=== PATIENT | female | born 1985 | race Hispanic/Latino ===

== ENCOUNTER 2018-10-19 15:30 | Inpatient (IN) | payer MEDICAID, OTHER ==
[2018-10-19 15:30] VITALS: BMI 18.4
--- NOTE | 2018-10-19 16:22 | ED PDOC ---
HPI: Psych/Substance Abuse Chief Complaint (Nursing): Psychiatric Evaluation Chief Complaint (Provider): Psychiatric Evaluation History Per: Patient History/Exam Limitations: no limitations Additional Complaint(s): July Amin is a 33 year old female with a past medical history of depression and hepatitis C, who presents to the emergency department complaining of suicidal ideation. Patient further states that she feels like jumping when she goes over a bridge and states that she does not want to exist anymore. Patient states she was diagnosed with hepatitis C x1.5 years ago. She admits to using heroine and states that she last used it at 5am today. Patient is also on klonopin that is prescribed to her by her doctor at [facility]. She was instructed to follow up with psychiatrist, but she denies ever doing it. PMD: [facility] Past Medical History Reviewed: Historical Data, Nursing Documentation, Vital Signs Vital Signs: Last Vital Signs Temp 98.3 F 10/19/18 15:46 Pulse 102 H 10/19/18 15:46 Resp 16 10/19/18 15:46 BP 125/77 10/19/18 15:46 Pulse Ox 96 10/19/18 15:46 - Medical History PMH: Anxiety, Depression, Seizures Denies: Alzheimer's Disease, Anemia, Arthritis, Asthma, Atrial Fibrillation, Bronchitis, Cardia Arrhythmia, CHF, COPD, Crohn's Disease, Dementia, Diabetes, Diverticulitis, Emphysema, Fractures, Gastritis, Gall Bladder Disease, Hepatitis, HIV, HTN, Hypercholesterolemia, Hyperthyroidism, Hypothyroidism, Kidney Stones, Migraine, Mitral Valve Prolapse, Multiple Sclerosis, Osteoporosis, Pancreatitis, Parkinson's Disease, Peripheral Edema, Pneumonia, Pulmonary Embolism, Chronic Kidney Disease, Rheumatoid Arthritis, Sickle Cell Disease, Sexually Transmitted Disease, Sleep Apnea, TIA - Surgical History Surgical History: Denies: Pacemaker - Family History Family History: States: Unknown Family Hx - Immunization History Hx Tetanus Toxoid Vaccination: No Hx Influenza Vaccination: No Hx Pneumococcal Vaccination: No - Home Medications Home Medications: Ambulatory Orders Medication Instructions Recorded Divalproex [Depakote ER] 500 mg PO Q12 10/19/18 Gabapentin [Neurontin] 800 mg PO Q8 10/19/18 Mirtazapine [Remeron] 30 mg PO HS 10/19/18 QUEtiapine [Seroquel] 100 mg PO Q12 10/19/18 Sertraline [Zoloft] 100 mg PO DAILY 10/19/18 clonazePAM [Klonopin] 0.5 mg PO DAILY PRN 10/19/18 - Allergies Allergies/Adverse Reactions: Allergies Allergy/AdvReac Type Severity Reaction Status Date / Time Sulfa (Sulfonamide Allergy SWELLING Verified 10/19/18 15:46 Antibiotics) Review of Systems ROS Statement: Except As Marked, All Systems Reviewed And Found Negative Psych: Positive for: Suicidal ideation Physical Exam - Reviewed Nursing Documentation Reviewed: Yes Vital Signs Reviewed: Yes - Physical Exam Appears: Positive for: Non-toxic, No Acute Distress Head Exam: Positive for: ATRAUMATIC Skin: Positive for: Normal Color (abrasions to the hands bilaterally and the left side of face ) Cardiovascular/Chest: Positive for: Regular Rate, Rhythm. Negative for: Murmur Respiratory: Positive for: Normal Breath Sounds. Negative for: Respiratory Distress - Laboratory Results Result Diagrams: 10/19/18 16:47 10/19/18 16:47 - ECG O2 Sat by Pulse Oximetry: 96 (RA) Pulse Ox Interpretation: Normal Medical Decision Making Medical Decision Making: Time: 1555 Plan: --1:1 observation After evaluation by crisis team, decision was made by Dr Reed to admit for Suicidal Ideation an dMajor Depression Bridge orders including wound culture on facial lesion were entered to facilitate smooth transfer of patient care. ---- Scribe Attestation: Documented by Kyle Garcia, acting as a scribe for Aryan Doss PA-C. Provider Scribe Attestation: All medical record entries made by the Scribe were at my direction and personally dictated by me. I have reviewed the chart and agree that the record accurately reflects my personal performance of the history, physical exam, medical decision making, and the department course for this patient. I have also personally directed, reviewed, and agree with the discharge instructions and di sposition. Disposition - Clinical Impression Clinical Impression: Depression, major, severe recurrence - Patient ED Disposition Is Patient to be Admitted: Yes Discussed With Dr.: Reji Solis Doctor Will See Patient In The: Hospital Counseled Patient/Family Regarding: Diagnosis - Disposition Disposition Time: 21:32 Condition: STABLE - Pt Status Changed To: Hospital Disposition Of: Inpatient - Admit Certification Admit to Inpatient:: After my assessment, the patient will require hospitalization for at least two midnights. This is because of the severity of symptoms shown, intensity of services needed, and/or the medical risk in this patient being treated as an outpatient.
[2018-10-19 17:05] LABS: BASO # 0.1 K/uL (0.0-0.2); BASO % 0.8 % (0.0-2.0); EOS # 0.4 K/uL (0.0-0.7); EOS % 5.9 % (0.0-4.0); HEMOGLOBIN 11.6 g/dL (12.0-16.0); LYMPH # 2.7 K/uL (1.0-4.3); LYMPH % 39.3 % (20.0-40.0); MEAN CELL VOLUME 88.9 fl (81.0-99.0); MEAN CORPUSCULAR HEMOGLOBIN 29.6 pg (27.0-31.0); MEAN CORPUSCULAR HGB CONC 33.3 g/dL (33.0-37.0); MEAN PLATELET VOLUME 7.8 fl (7.2-11.7); MONO # 0.7 K/uL (0.0-0.8); MONO % 10.7 % (0.0-10.0); NEUT # 2.9 K/uL (1.8-7.0); NEUT % 43.3 % (50.0-75.0); RBC 3.9 Mil/uL (3.80-5.20); RED CELL DISTRIBUTION WIDTH 14.8 % (11.5-14.5); WHITE BLOOD COUNT 6.8 K/uL (4.8-10.8)
[2018-10-19 17:10] LABS: SQUAMOUS EPITHIAL 12 /hpf (0-5); URINE BACTERIA FEW (<OCC); URINE BILIRUBIN NEGATIVE (NEGATIVE); URINE BLOOD NEGATIVE (NEGATIVE); URINE CLARITY SLIGHTY-CLOUDY (Clear); URINE COLOR YELLOW (YELLOW); URINE GLUCOSE (UA) NEG (NEGATIVE); URINE LEUKOCYTE ESTERASE SMALL Leu/uL (Negative); URINE PROTEIN NEGATIVE (NEGATIVE)
[2018-10-19 17:20] LABS: ALB/GLOB RATIO 1.1 (1.0-2.1); ALBUMIN 3.7 g/dL (3.5-5.0); ALT/SGPT 46 U/L (9-52); AST/SGOT 54 U/L (14-36); BLOOD UREA NITROGEN 17 mg/dl (7-17); CALCIUM 9.3 mg/dL (8.4-10.2); GFR NON-AFRICAN AMERICAN > 60
[2018-10-19 17:23] LABS: BARBITURATES, UR NEGATIVE (NEGATIVE); BENZODIAZEPINES, UR POSITIVE (NEGATIVE); OPIATES, UR POSITIVE (NEGATIVE); PHENCYCLIDINE, UR NEGATIVE (NEGATIVE)
[2018-10-19 22:35] VITALS: O2SAT 100
[2018-10-19] MEDS ORDERED: Magnesium Hydroxide Susp 30 ml UD PO PRN (23:07)
[2018-10-19] MEDS ORDERED: Alum-Mag Hydrox-Simethicone Susp (30 mL) PO PRN (23:07)
[2018-10-19] MEDS ORDERED: DiphenhydrAMINE 50 mg/ml Inj IM PRN (23:07)
--- NOTE | 2018-10-19 23:55 | PCM.BM ---
<Isabel Wu P - Last Filed: 10/19/18 23:53> Treatment Plan Problems - Problems identified on initial assessmt Altered Sleep Patterns Date Initiated: 10/19/18 Time Initiated: 23:55 Assessment reference: NA Status: Active Hopelessness/Helplessness Date Initiated: 10/19/18 Time Initiated: 23:56 Assessment reference: NA Medication nonadherence Date Initiated: 10/19/18 Time Initiated: 23:56 Assessment reference: NA Status: Active Treatment assets and liabiliti Patient Assests: adapts well, cooperative, self-reliant, ADL independent, physically healthy, good support system, negotiates basic needs, cognitively intact Patient Liabilities: live alone, financial problems, substance abuse - Milieu Protocol Maintain good personal hygiene: daily Encourage regular showers, daily Remind patient to perform daily oral care, daily Assist patient to perform ADL's Conduct patient checks and document Observation sheet: Q15 minutes Maintain personal safety: every shift Educate patient to report safety concerns to staff, every shift Monitor environment for contraband/sharps Medication safety: Monitor for expected outcome, potential side effects: every shift, Assess barriers to learning: every shift, Assess readiness for medication education: every shift <Mehnaz Shaver - Last Filed: 10/22/18 10:38> - Diagnosis (1) Opiate dependence Status: Acute Interventions: 10/21/18 15:01 motivational therapy (2) Bipolar 1 disorder Status: Acute Interventions: 10/21/18 15:01 psychotherapy, pharmacotherapy
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
[2018-10-20] MEDS: Bacitracin OINT 15GM TOP SCH (21:12)
[2018-10-21] MEDS: Bacitracin OINT 15GM TOP SCH ×2 (08:22→17:23)
--- NOTE | 2018-10-21 15:11 | PCM.PYCHPN ---
Psychiatric Progress Note - Psychiatric Progress Note Patient seen today, length of contact: pt evaluated discussed with team chart reviewed Patient Chief Complaint: I feel anxious all the time Problems Identified/Issues Discussed: pt evaluated with treatment team, presenting with anxious mood, affect irritable, reported feeling exhausted due to opiate and alcohol withdrawal, discussed with pt increasing dose of neurontin and seroquel, pt continues to be depressed feeling hopeless and helpless, passive suicidal ideation without active plan on the unit , denied command hallucinations, Medical Problems: multiple inpatient hospitalizations hx of non compliance DSM 5 Symptoms Update: bipolar I disorder mixed severe opiate dependence alcohol dependence cocaine dependence Medication Change: Yes (increase neurontin and seroquel) Medical Record Reviewed: Yes Mental Status Examination - Cognitive Function Orientation: Person, Place Attention: WNL Concentration: Poor Association: WNL Fund of Knowledge: WNL Decription of patient's judgement and insights: partial insight poor judgment - Mood Mood: Depressed, Anxious - Affect Affect: Depressed Additional comments: irritable labile - Speech Speech: Appropriate - Formal Thought Process Formal Thought Process: Circumstantial Psychotic Thoughts and Behaviors: pt denied current perceptual disturbances, non elicited - Suicidal Ideation Suicidal Ideation: Yes - Homicidal Ideation Homicidal Ideation: No Goal/Treatment Plan - Goal/Treatment Plan Need for Continued Stay: Severe depression anxiety, Discharge may exacerbated symptoms Progress Toward Problem(s) and Goals/Treatment Plan: librium protocol/ pt will be monitored for symptoms and signs of alcohol withdrawal clonidine protocol/ pt will be monitored for symptoms and signs of opiate withdrawal neurontin 6000mg tid seroquel 300mg qhs motivational group and supportive therapy
[2018-10-22] MEDS: Bacitracin OINT 15GM TOP SCH (08:28)
[2018-10-22 09:35] VITALS: BP 116/72; PULSE 95; RESP 20; TEMP 96.9
--- NOTE | 2018-10-22 11:12 | PCM.PYCHDC ---
Mental Status Examination - Mental Status Examination Orientation: Person, Place Memory: Intact Mood: Neutral Affect: Constricted Speech: Appropriate Attention: WNL Concentration: WNL Association: WNL Fund of Knowledge: WNL Formal Thought Process: No Impairment Description of patient's judgement and insight: partial insight poor judgment Psychotic Thoughts and Behaviors: pt denied current perceptual disturbances, non elicited Suicidal Ideation: No Current Homicidal Ideation?: No Discharge Summary - Discharge Note Reason for Hospitalization: pt is 33 ys old female with previous diagnosis of bipolar disorder and poly substance use disorder . presented to ER with suicidal ideation with plan to jump off the bridge , pt recently discharged from [facility], has been increasingly depressed, due to financial stress, relapsed on opiates and cocaine, pt was feeling hopeless and helpless, started experiencing suicidal ideation on the unit pt presenting with anxious mood , dysphoric affect, feeling hopeless and helpless, passive suicidal ideation without active plan on the unit, denied command hallucinations , urine toxicology positive for cocaine and opiates Consultations:: List each consultation separately and include: 1. Reason for request. 2. Findings. 3. Follow-up Summary of Hospital Course include:: 1. Description of specific treatment plan utilized for patients during their course of treatmen. 2. Summarize the time- course for resolution of acute symptoms and/or regressed behaviors. 3. Describe issues identified and worked on during hospitalization. 4. Describe medication utilized. 5. Describe medical problems identified and treated. 6. Reassessment of suicide risk Summary of Hospital Course: pt on admission was started on clonidine protocol for opiate withdrawal and librium protocol for alcohol withdrawal pt was also started on neurontin and seroquel for mood stabilization motivational therapy was provided pt on second day of evaluation requested to be discharged pt was advised about risk of relapse and possible overdose patient understood risks and benefits, to continue with treatment she signed against medical advise on discharge pt denied any current suicidal or homicidal ideation denied pe rceptual disturbances follow up appointment has been set at [facility] - Diagnosis (1) Opiate dependence Current Visit: Yes Status: Acute (2) Bipolar 1 disorder Current Visit: No Status: Acute - Final Diagnosis (DSM 5) Condition upon Discharge: STABLE DSM 5: bipolar I disorder mixed severe cocaine abuse opiate abuse alcohol abuse Disposition: AGAINST MEDICAL ADVICE Follow-up Treatment Plan: librium protocol/ pt will be monitored for symptoms and signs of alcohol withdrawal clonidine protocol/ pt will be monitored for symptoms and signs of opiate withdrawal neurontin 6000mg tid seroquel 300mg qhs motivational group and supportive therapy - Antipsychotic Medications Pt discharged on 2 or more routine antipsychotic medications: No
== END 2018-10-22 11:45 | disposition left against medical advice (07) | DRG 430 ==
LOC: H.ER 15:30 → H.ERHOLD 18:01 → H.PSYCH 23:04
PROVIDERS: ADMIT Psychiatry & Neurology Psychiatry; ATTEND Psychiatry & Neurology Psychiatry
PROC: GZ51ZZZ Individual Psychotherapy, Behavioral (ICD-10-PCS; principal; 2018-10-19)
PROC: GZ56ZZZ Individual Psychotherapy, Supportive (ICD-10-PCS; 2018-10-19)
DX: F31.63 Bipolar disorder, current episode mixed, severe, without psychotic features (principal); R56.9 Unspecified convulsions; B18.2 Chronic viral hepatitis C; F10.239 Alcohol dependence with withdrawal, unspecified; F11.20 Opioid dependence, uncomplicated; F14.20 Cocaine dependence, uncomplicated; R45.851 Suicidal ideations; F17.210 Nicotine dependence, cigarettes, uncomplicated; Z91.19 Patient's noncompliance with other medical treatment and regimen; F41.9 Anxiety disorder, unspecified; Z79.899 Other long term (current) drug therapy